=== PATIENT | female | born 1935 | race Caucasian/White ===

== ENCOUNTER 2021-09-18 11:44 | Emergency (ER) | payer OTHER, SELFPAY ==
[~2021-09-18] VITALS: Ht 157.5 cm; Wt 43.1 kg
[2021-09-18 12:10] VITALS: BP 122/64
--- NOTE | 2021-09-18 13:48 | NUR ---
COVID AND FLU SWABED AND TAKEN TO THE LAB. WILL CALL WITH RESULTS PER DR. GARDNER.
--- NOTE | 2021-09-18 13:49 | NUR ---
Patient discharged with v/s stable. Written and verbal after care instructions given and explained. Patient verbalized understanding. Ambulatory with steady gait. All questions addressed prior to discharge. Advised to follow up with PMD.
== END 2021-09-18 13:49 | disposition home or self-care (01) ==
LOC: MED 11:44
DX: J44.9 Chronic obstructive pulmonary disease, unspecified (principal); Z20.822 Contact with and (suspected) exposure to COVID-19
CPT/HCPCS: 71045; 87804; 99284

== ENCOUNTER 2021-10-05 12:50 | Emergency (ER) | payer OTHER, SELFPAY ==
[~2021-10-05] VITALS: Ht 152.4 cm; Wt 43.1 kg
[2021-10-05 13:18] VITALS: BP 117/64
[2021-10-05 14:20] LABS: BASOPHILS % (AUTO) 0.5 % (0.0-2.0); EOSINOPHILS % (AUTO) 0.1 % (0.0-4.0); HEMATOCRIT 34.5 % (36-48); HEMOGLOBIN 11.4 g/dL (12.0-16.0); LYMPHOCYTES # (AUTO) 1.1 K/uL (2.5-16.5); LYMPHOCYTES % (AUTO) 22.6 % (20.5-51.1); MEAN CORPUSCULAR HEMOGLOBIN 30 pg (27-31); MEAN CORPUSCULAR HGB CONC 33 g/dL (33-37); MEAN CORPUSCULAR VOLUME 90.6 fL (80-94); MONOCYTES # (AUTO) 0.8 K/uL (0.8-1.0); MONOCYTES % (AUTO) 16.1 % (1.7-9.3); NEUTROPHILS # (AUTO) 3.1 K/uL (1.8-7.7); NEUTROPHILS % (AUTO) 60.7 % (42.2-75.2); PLATELET COUNT (AUTO) 154 K/uL (140-450); RED CELL DISTRIBUTION WIDTH 14.5 % (11.6-13.7)
[2021-10-05] MEDS ORDERED: DILTIAZEM 25 MG/5 ML VIAL IVP ONE (14:30)
[2021-10-05] MEDS ORDERED: NACL 0.9% 1,000 ML IV ONE (14:30)
[2021-10-05 14:35] LABS: ALBUMIN 3.2 g/dL (3.4-5.0); ANION GAP 13.3 (8-16); ASPARTATE AMINOTRANSFERASE 29 U/L (15-37); CARBON DIOXIDE 25.2 mmol/L (21-32); CHLORIDE 103 mmol/L (98-107); CREATININE 0.8 mg/dL (0.6-1.3); GLUCOSE 98 mg/dL (74-106); POTASSIUM 4.5 mmol/L (3.5-5.1); SODIUM SERUM 137 mmol/L (136-145); TOTAL BILIRUBIN 0.4 mg/dL (0.0-1.0); UREA NITROGEN, BLOOD 14 mg/dL (7-18)
--- NOTE | 2021-10-05 16:13 | NUR ---
86 Y/O FEMALE BIB DAUGHTER C/O COUGH, HEADACHE, CHEST PRESSURE, BACK PAIN 8 AND SOB X1DAY. SPO2 97% ON RA. LUNG SOUNDS CLEAR. DENIES N/V/D, DENIES FEVER/CHILLS. DENIES PMH NKA
--- NOTE | 2021-10-05 16:26 | NUR ---
IRISH AND FLU SWABS COLLECTED AND SENT TO LAB WITH FABY GOTTI
[2021-10-05] MEDS ORDERED: TAM75 PO (18:09)
[2021-10-05 19:06] VITALS: BP 120/59
--- NOTE | 2021-10-05 19:06 | NUR ---
Patient discharged with v/s stable. Written and verbal after care instructions given and explained. Patient alert, oriented and verbalized understanding of instructions. Wheel Chair Assisted with to car. All questions addressed prior to discharge. ID band removed. Patient advised to follow up with PMD. Rx of TAMIFLU given. Patient educated on indication of medication including possible reaction and side effects. Opportunity to ask questions provided and answered.
== END 2021-10-05 19:06 | disposition home or self-care (01) ==
LOC: MED 12:50
DX: U07.1 COVID-19 (principal); J11.1 Influenza due to unidentified influenza virus with other respiratory manifestations; I48.0 Paroxysmal atrial fibrillation; Z79.899 Other long term (current) drug therapy
CPT/HCPCS: 36415; 71045; 80053; 83880; 84484; 85025; 87426; 87804; 93005; 96360; 99285; Q0092; J7030

== ENCOUNTER 2022-03-03 18:41 | Emergency (ER) | payer OTHER ==
[~2022-03-03] VITALS: Ht 149.9 cm; Wt 54.4 kg
[~2022-03-03 18:41] MED LIST: TAM75 PO
[2022-03-03 19:02] VITALS: BP 120/79
--- NOTE | 2022-03-03 19:12 | NUR ---
DR. LOAIZA EXAMINING PATIENT.
--- NOTE | 2022-03-03 19:17 | NUR ---
Patient taken to bed 4 via wheel chair.
[2022-03-03] MEDS ORDERED: NACL 0.9% 1,500 ML IV ONE (19:30)
[2022-03-03] MEDS ORDERED: cefTRIAXone 1,000 MG VIAL ONE (19:38)
[2022-03-03 19:42] LABS: BASOPHILS % (AUTO) 0.4 % (0.0-2.0); EOSINOPHILS % (AUTO) 0.3 % (0.0-4.0); HEMATOCRIT 32.2 % (36-48); HEMOGLOBIN 10.6 g/dL (12.0-16.0); LYMPHOCYTES # (AUTO) 1.1 K/uL (2.5-16.5); LYMPHOCYTES % (AUTO) 15.3 % (20.5-51.1); MEAN CORPUSCULAR HEMOGLOBIN 29 pg (27-31); MEAN CORPUSCULAR HGB CONC 33 g/dL (33-37); MEAN CORPUSCULAR VOLUME 89.6 fL (80-94); MONOCYTES # (AUTO) 0.5 K/uL (0.8-1.0); MONOCYTES % (AUTO) 6.3 % (1.7-9.3); NEUTROPHILS # (AUTO) 5.8 K/uL (1.8-7.7); NEUTROPHILS % (AUTO) 77.7 % (42.2-75.2); PLATELET COUNT (AUTO) 146 K/uL (140-450); RED BLOOD CELL COUNT(AUTO) 3.59 MIL/uL (4.20-5.40); RED CELL DISTRIBUTION WIDTH 15.1 % (11.6-13.7); WHITE BLOOD COUNT (AUTO) 7.4 K/uL (4.8-10.8)
[2022-03-03 19:56] LABS: ANION GAP 11.3 (8-16); CARBON DIOXIDE 26.5 mmol/L (21-32); CHLORIDE 100 mmol/L (98-107); CREATININE 0.6 mg/dL (0.6-1.3); GLUCOSE 117 mg/dL (74-106); POTASSIUM 3.8 mmol/L (3.5-5.1); SODIUM SERUM 134 mmol/L (136-145); UREA NITROGEN, BLOOD 12 mg/dL (7-18)
--- NOTE | 2022-03-03 20:02 | NUR ---
86 Y/O FEMALE C/O FEVER, SOB, SATTING AT 95% ON ROOM AIR. COUGH NOTED. TEMP TEMPORAL 101.5.
[2022-03-03 20:06] LABS: ALBUMIN 3.1 g/dL (3.4-5.0); ASPARTATE AMINOTRANSFERASE 24 U/L (15-37)
--- NOTE | 2022-03-03 20:19 | NUR ---
XRAY AT BEDSIDE
[2022-03-03] MEDS ORDERED: AZIT250T4 PO (20:43)
[2022-03-03 22:05] VITALS: BP 137/86
--- NOTE | 2022-03-03 22:05 | NUR ---
Patient discharged with v/s stable. Written and verbal after care instructions given and explained. Patient alert, oriented and verbalized understanding of instructions. Ambulatory with steady gait. All questions addressed prior to discharge. ID band removed. Patient advised to follow up with PMD. Rx of azithromycin given. Patient educated on indication of medication including possible reaction and side effects. Opportunity to ask questions provided and answered.
== END 2022-03-03 22:05 | disposition home or self-care (01) ==
LOC: MED 18:41
DX: J18.9 Pneumonia, unspecified organism (principal); Z20.822 Contact with and (suspected) exposure to COVID-19
CPT/HCPCS: 36415; 71045; 80053; 83605; 84484; 85025; 87040; 87426; 87804; 93005; 96365; 96366; 99285; J0696; J7030

== ENCOUNTER 2022-06-12 17:55 | Emergency (ER) | payer OTHER ==
[~2022-06-12] VITALS: Ht 142.2 cm; Wt 40.8 kg
[~2022-06-12 17:55] MED LIST changes: +AZIT250T4 PO
[2022-06-12 18:27] VITALS: BP 131/83
[2022-06-12 19:38] LABS: BASOPHILS % (AUTO) 0.3 % (0.0-2.0); EOSINOPHILS % (AUTO) 0.4 % (0.0-4.0); HEMATOCRIT 33.2 % (36-48); HEMOGLOBIN 10.9 g/dL (12.0-16.0); LYMPHOCYTES % (AUTO) 18.7 % (20.5-51.1); MEAN CORPUSCULAR HEMOGLOBIN 30 pg (27-31); MEAN CORPUSCULAR HGB CONC 33 g/dL (33-37); MEAN CORPUSCULAR VOLUME 90.1 fL (80-94); MONOCYTES # (AUTO) 0.7 K/uL (0.8-1.0); MONOCYTES % (AUTO) 6.1 % (1.7-9.3); NEUTROPHILS # (AUTO) 8.1 K/uL (1.8-7.7); NEUTROPHILS % (AUTO) 74.5 % (42.2-75.2); PLATELET COUNT (AUTO) 180 K/uL (140-450); RED BLOOD CELL COUNT(AUTO) 3.68 MIL/uL (4.20-5.40); RED CELL DISTRIBUTION WIDTH 15.6 % (11.6-13.7); WHITE BLOOD COUNT (AUTO) 10.8 K/uL (4.8-10.8)
[2022-06-12 19:58] LABS: ANION GAP 12.3 (8-16); ASPARTATE AMINOTRANSFERASE 27 U/L (15-37); CARBON DIOXIDE 28.2 mmol/L (21-32); CHLORIDE 99 mmol/L (98-107); CREATININE 0.8 mg/dL (0.6-1.3); GLUCOSE 99 mg/dL (74-106); POTASSIUM 3.5 mmol/L (3.5-5.1); SODIUM SERUM 136 mmol/L (136-145); TOTAL BILIRUBIN 0.8 mg/dL (0.0-1.0); UREA NITROGEN, BLOOD 11 mg/dL (7-18)
[2022-06-12] MEDS ORDERED: DOXY-690 PO (20:46)
[2022-06-12] MEDS ORDERED: INHA1SPA24 MC (20:46)
[2022-06-12] MEDS ORDERED: ALBU0.0912 INH (20:46)
[2022-06-12] MEDS ORDERED: PRED20TA5 PO (20:46)
--- NOTE | 2022-06-12 20:50 | NUR ---
IVYD ASSESSING PATIENT IN CHAIR A
--- NOTE | 2022-06-12 20:51 | NUR ---
PT TAKEN TO BED 7
[2022-06-12 21:00] VITALS: BP 126/80
--- NOTE | 2022-06-12 21:00 | NUR ---
Patient discharged with v/s stable. Written and verbal after care instructions given and explained. Patient alert, oriented and verbalized understanding of instructions. Ambulatory with steady gait. All questions addressed prior to discharge. ID band removed. Patient advised to follow up with PMD. Rx of ALBUTEROL, PREDNISONE AND VIBRAMYCIN given.
--- NOTE | 2022-06-12 21:29 | NUR ---
The patient's care was reviewed and supervised by Laura Stanley RN.
== END 2022-06-12 21:00 | disposition home or self-care (01) ==
LOC: MED 17:55
DX: J20.8 Acute bronchitis due to other specified organisms (principal); B97.89 Other viral agents as the cause of diseases classified elsewhere
CPT/HCPCS: 36415; 71046; 80053; 83605; 83880; 84484; 85025; 93005; 99285

== ENCOUNTER 2023-06-03 17:51 | Inpatient (IN) | payer OTHER ==
[~2023-06-03] VITALS: Ht 147.3 cm; Wt 44.5 kg
[~2023-06-03 17:51] MED LIST changes: +ALBU0.0912 INH; +DOXY-690 PO; +INHA1SPA24 MC; +PRED20TA5 PO
[2023-06-03 18:30] VITALS: BP 179/80; PULSE 91; RESP 18; TEMP 98.1; O2SAT 96
[2023-06-03 19:47] LABS: BASOPHILS % (AUTO) 0.6 % (0.0-2.0); EOSINOPHILS # (AUTO) 0.3 K/uL (0-0.4); EOSINOPHILS % (AUTO) 3.5 % (0.0-4.0); HEMATOCRIT 36.8 % (36-48); HEMOGLOBIN 12.1 g/dL (12.0-16.0); LYMPHOCYTES # (AUTO) 1.9 K/uL (2.5-16.5); MEAN CORPUSCULAR HEMOGLOBIN 30 pg (27-31); MEAN CORPUSCULAR HGB CONC 33 g/dL (33-37); MEAN CORPUSCULAR VOLUME 91.5 fL (80-94); MONOCYTES # (AUTO) 0.6 K/uL (0.8-1.0); MONOCYTES % (AUTO) 7.3 % (1.7-9.3); NEUTROPHILS % (AUTO) 64.6 % (42.2-75.2); PLATELET COUNT (AUTO) 227 K/uL (140-450); RED BLOOD CELL COUNT(AUTO) 4.02 MIL/uL (4.20-5.40); RED CELL DISTRIBUTION WIDTH 13.2 % (11.6-13.7); WHITE BLOOD COUNT (AUTO) 7.8 K/uL (4.8-10.8)
[2023-06-03 20:09] LABS: ALANINE AMINOTRANSFERASE 12 U/L (12-78); ALBUMIN 3.4 g/dL (3.4-5.0); ALKALINE PHOSPHATASE 101 U/L (50-136); ANION GAP 13.7 (8-16); ASPARTATE AMINOTRANSFERASE 23 U/L (15-37); CALCIUM 8.4 mg/dL (8.5-10.1); CARBON DIOXIDE 26.4 mmol/L (21-32); CHLORIDE 100 mmol/L (98-107); CREATININE 0.7 mg/dL (0.6-1.3); GLUCOSE 105 mg/dL (74-106); POTASSIUM 4.1 mmol/L (3.5-5.1); SODIUM SERUM 136 mmol/L (136-145); TOTAL BILIRUBIN 0.6 mg/dL (0.0-1.0); TOTAL PROTEIN, SERUM 8.1 g/dL (6.4-8.2); UREA NITROGEN, BLOOD 6 mg/dL (7-18)
[2023-06-03] MEDS ORDERED: AZIT250T4 PO (21:38)
[2023-06-03] MEDS ORDERED: DOXY-487 PO (21:38)
[2023-06-03] MEDS ORDERED: ALBU0.0912 INH (21:39)
[2023-06-03] MEDS ORDERED: BENZ150C2 PO (21:39)
[2023-06-03] MEDS ORDERED: AZITHROMYCIN 500 MG in DEXTROSE 5% 250 ML IV ONE (22:15)
[2023-06-03] MEDS ORDERED: cefTRIAXone 1,000 MG VIAL ONE (22:43)
[2023-06-03] MEDS ORDERED: AZITHROMYCIN 500 MG INJ VIAL IV ONE (22:53)
[2023-06-03] MEDS: AZITHROMYCIN 500 MG in DEXTROSE 5% 250 ML IV SCH (23:10)
[2023-06-03] MEDS ORDERED: ONDANSETRON 4 MG/2 ML VIAL IVP PRN (23:10)
[2023-06-03] MEDS ORDERED: LORazepam 2 MG/ML VIAL IVP PRN (23:10)
[2023-06-03] MEDS ORDERED: HYDROcodone/APAP 5/325 MG 1 TAB TAB PO PRN (23:10)
[2023-06-03] MEDS ORDERED: MORPHINE SULFATE 2 MG/ML SYR IVP PRN (23:10)
[2023-06-03 23:11] LABS: LACTIC ACID 1.3 mmol/L (0.4-2.0)
[2023-06-04] VITALS (12 sets, daily range): BP systolic 105–139; BP diastolic 51–73; PULSE 79–96; RESP 16–20; TEMP 98.8–99.5; O2SAT 87–100
[2023-06-04 00:08] LABS: FLU A ANTIGEN negative (NEGATIVE); FLU B ANTIGEN NEGATIVE (NEGATIVE)
[2023-06-04] MEDS: ACETAMINOPHEN 325 MG TAB PO PRN (01:37)
[2023-06-04 06:24] LABS: BASOPHILS # (AUTO) 0.1 K/uL (0.00-0.22); BASOPHILS % (AUTO) 1.2 % (0.0-2.0); EOSINOPHILS % (AUTO) 0.2 % (0.0-4.0); HEMATOCRIT 31.2 % (36-48); HEMOGLOBIN 10.6 g/dL (12.0-16.0); LYMPHOCYTES # (AUTO) 1.8 K/uL (2.5-16.5); LYMPHOCYTES % (AUTO) 15.8 % (20.5-51.1); MEAN CORPUSCULAR HEMOGLOBIN 31 pg (27-31); MEAN CORPUSCULAR HGB CONC 34 g/dL (33-37); MEAN CORPUSCULAR VOLUME 90.4 fL (80-94); MONOCYTES # (AUTO) 0.8 K/uL (0.8-1.0); MONOCYTES % (AUTO) 6.7 % (1.7-9.3); NEUTROPHILS # (AUTO) 8.8 K/uL (1.8-7.7); NEUTROPHILS % (AUTO) 76.1 % (42.2-75.2); PLATELET COUNT (AUTO) 192 K/uL (140-450); RED BLOOD CELL COUNT(AUTO) 3.46 MIL/uL (4.20-5.40); WHITE BLOOD COUNT (AUTO) 11.6 K/uL (4.8-10.8)
[2023-06-04 06:36] LABS: ALANINE AMINOTRANSFERASE 10 U/L (12-78); ALBUMIN 2.6 g/dL (3.4-5.0); ALKALINE PHOSPHATASE 76 U/L (50-136); ANION GAP 11.4 (8-16); ASPARTATE AMINOTRANSFERASE 20 U/L (15-37); CALCIUM 7.5 mg/dL (8.5-10.1); CARBON DIOXIDE 26.9 mmol/L (21-32); CHLORIDE 101 mmol/L (98-107); CREATININE 0.7 mg/dL (0.6-1.3); GLUCOSE 97 mg/dL (74-106); MAGNESIUM 1.7 mg/dL (1.8-2.4); POTASSIUM 3.3 mmol/L (3.5-5.1); SODIUM SERUM 136 mmol/L (136-145); TOTAL BILIRUBIN 0.8 mg/dL (0.0-1.0); TOTAL PROTEIN, SERUM 6.4 g/dL (6.4-8.2); UREA NITROGEN, BLOOD 6 mg/dL (7-18)
[2023-06-04] MEDS: ALBUTEROL SULFATE/IPRATROPIU 3 ML SOL IH PRN (14:22)
[2023-06-05] VITALS (10 sets, daily range): BP systolic 107–130; BP diastolic 55–70; PULSE 80–101; RESP 16–19; TEMP 97.6–98.8; O2SAT 88–99
[2023-06-05] MEDS: AZITHROMYCIN 500 MG in DEXTROSE 5% 250 ML IV SCH (00:44)
[2023-06-05] MEDS: ALBUTEROL SULFATE/IPRATROPIU 3 ML SOL IH PRN (07:54)
[2023-06-05] MEDS ORDERED: AMOX-999 PO (18:46)
[2023-06-06] MEDS: AZITHROMYCIN 500 MG in DEXTROSE 5% 250 ML IV SCH ×2
[2023-06-06 04:00] VITALS: BP 126/63; PULSE 91; RESP 18; TEMP 98.8; O2SAT 96
[2023-06-06] MEDS: ACETAMINOPHEN 325 MG TAB PO PRN (04:18)
[2023-06-06 07:50] VITALS: RESP 20; O2SAT 99
[2023-06-06 07:51] VITALS: PULSE 85; RESP 20; O2SAT 92
[2023-06-06 08:00] VITALS: BP 112/52; PULSE 69; RESP 18; TEMP 97.3; O2SAT 95
[2023-06-06] MEDS ORDERED: POTASSIUM CHLORIDE 10 MEQ TABER PO SCH (08:25)
== END 2023-06-06 15:20 | disposition home health service (06) | DRG 139 ==
LOC: MED 17:51 → MMU 23:06 → MTU 06-04 00:41
PROVIDERS: ADMIT Hospitalist; ATTEND Hospitalist
DX: J18.9 Pneumonia, unspecified organism (principal); J96.01 Acute respiratory failure with hypoxia; E44.1 Mild protein-calorie malnutrition; Z20.822 Contact with and (suspected) exposure to COVID-19; Z79.899 Other long term (current) drug therapy; Z68.20 Body mass index [BMI] 20.0-20.9, adult
CPT/HCPCS: 36415; 71045; 80053; 83605; 83735; 83880; 84484; 85025; 87040; 87081; 93005; 94640; 96365; 96368; 97112; 97116; 97530; 99285; J0456; J0696; J1644; J7060